=== PATIENT | male | born 2005 | race Caucasian/White ===

== ENCOUNTER 2023-04-18 20:07 | Emergency (ER) | payer OTHER ==
[~2023-04-18] VITALS: Ht 160 cm; Wt 56.8 kg
[2023-04-18 21:34] VITALS: TEMP 98.5
[2023-04-18 22:22] LABS: HEMOGLOBIN 13.9 g/dl (13.5-17.5); MEAN CORPUSCULAR HEMOGLOBIN 28.1 pg (27.0-33.0); MEAN CORPUSCULAR HGB CONC 32.3 g/dl (32.0-36.5); PLATELET COUNT, AUTOMATED 320 10^3/uL (150-450); RED BLOOD COUNT 4.94 10^6/uL (4.30-6.10); WHITE BLOOD COUNT 9.4 10^3/uL (4.0-10.0)
[2023-04-18 22:43] LABS: AMPHETAMINES LEVEL URINE NEGATIVE (NEGATIVE); BARBITURATES URINE NEGATIVE (NEGATIVE); COCAINE METABOLITE URINE NEGATIVE (NEGATIVE)
[2023-04-18 22:44] LABS: CANNABINOIDS URINE NEGATIVE (NEGATIVE); METHADONE URINE NEGATIVE (NEGATIVE); OPIATES URINE NEGATIVE (NEGATIVE); PHENCYCLIDINE URINE NEGATIVE (NEGATIVE)
[2023-04-18 22:46] LABS: BENZODIAZEPINES URINE NEGATIVE (NEGATIVE); ETHYL ALCOHOL (ETHANOL) < 0.003 % (0.000-0.010)
[2023-04-18 22:47] LABS: ACETAMINOPHEN LEVEL < 2.0 UG/ML (10.0-20.0); ALBUMIN 3.9 G/DL (3.2-5.2); ALKALINE PHOSPHATASE 108 U/L (46-116); ALT/SGPT 28 U/L (7.0-40); AST/SGOT 31 U/L (<34); BILIRUBIN,DIRECT 0.3 MG/DL (<0.4); BILIRUBIN,TOTAL 0.7 MG/DL (0.3-1.2); BLOOD UREA NITROGEN 15 MG/DL (9-23); CALCIUM LEVEL 9.2 MG/DL (8.5-10.1); CARBON DIOXIDE LEVEL 28 MMOL/L (20-31); CHLORIDE LEVEL 104 MMOL/L (98-107); GLUCOSE, FASTING 97 MG/DL (60-100); POTASSIUM SERUM 4.2 MMOL/L (3.5-5.1); SALICYLATE LEVEL < 3.0 MG/DL (<30); SODIUM LEVEL 140 MMOL/L (136-145); TOTAL PROTEIN 6.8 G/DL (5.7-8.2)
[2023-04-18 22:49] LABS: THYROID STIMULATING HORMONE 0.938 uIU/ML (0.48-4.17)
[2023-04-18 23:30] VITALS: BP 124/68; O2SAT 99
== END 2023-04-19 00:41 | disposition home or self-care (01) ==
LOC: M ED 20:07
DX: F43.22 Adjustment disorder with anxiety (principal)

== ENCOUNTER 2023-05-22 21:30 | Inpatient (IN) | payer OTHER ==
[~2023-05-22] VITALS: Ht 165.1 cm; Wt 54.5 kg
[2023-05-22] MEDS ORDERED: CHARCOAL ACTIVATED LIQUID 25GM/120ML BTL PO ONE (21:45)
[2023-05-22] MEDS ORDERED: ZOLO50TA PO (22:11)
[2023-05-22] MEDS ORDERED: HYDR50TA70 PO (22:11)
[2023-05-22 22:13] LABS: BASO # 0.1 10^3/uL (0.0-0.2); EOS % 0.4 % (0.0-3.0); LYMPH # 1.8 10^3/uL (1.5-5.0); LYMPH % 16.3 % (24.0-44.0); MEAN CORPUSCULAR HEMOGLOBIN 28.9 pg (27.0-33.0); MEAN CORPUSCULAR HGB CONC 33.3 g/dl (32.0-36.5); MEAN CORPUSCULAR VOLUME 86.7 fl (80.0-96.0); MONO # 0.8 10^3/uL (0.0-0.8); MONO % 7.2 % (2.0-8.0); NEUTROPHILS % 74.9 % (36.0-66.0); PLATELET COUNT, AUTOMATED 306 10^3/uL (150-450); RED BLOOD COUNT 5.19 10^6/uL (4.30-6.10); WHITE BLOOD COUNT 10.7 10^3/uL (4.0-10.0)
[2023-05-22 22:40] LABS: AMPHETAMINES LEVEL URINE NEGATIVE (NEGATIVE); BARBITURATES URINE NEGATIVE (NEGATIVE); BENZODIAZEPINES URINE NEGATIVE (NEGATIVE); CANNABINOIDS URINE NEGATIVE (NEGATIVE); COCAINE METABOLITE URINE NEGATIVE (NEGATIVE); METHADONE URINE NEGATIVE (NEGATIVE); OPIATES URINE NEGATIVE (NEGATIVE); PHENCYCLIDINE URINE NEGATIVE (NEGATIVE)
[2023-05-22 22:42] LABS: ETHYL ALCOHOL (ETHANOL) < 0.003 % (0.000-0.010)
[2023-05-22 22:43] LABS: CPK CREATINE PHOSPHOKINASE 1203 U/L (46-171)
[2023-05-22 22:44] LABS: ALBUMIN 4.2 G/DL (3.2-5.2); ALKALINE PHOSPHATASE 119 U/L (46-116); ALT/SGPT 25 U/L (7.0-40); AST/SGOT 43 U/L (<34); BILIRUBIN,DIRECT 0.2 MG/DL (<0.4); BILIRUBIN,TOTAL 0.5 MG/DL (0.3-1.2); BLOOD UREA NITROGEN 12 MG/DL (9-23); CALCIUM LEVEL 9.1 MG/DL (8.5-10.1); CARBON DIOXIDE LEVEL 28 MMOL/L (20-31); CHLORIDE LEVEL 105 MMOL/L (98-107); CREATININE FOR GFR 1.06 MG/DL (0.70-1.30); GLUCOSE, FASTING 91 MG/DL (60-100); POTASSIUM SERUM 4.2 MMOL/L (3.5-5.1); SALICYLATE LEVEL < 3.0 MG/DL (<30); SODIUM LEVEL 142 MMOL/L (136-145); TOTAL PROTEIN 7.4 G/DL (5.7-8.2)
[2023-05-22 22:46] LABS: THYROID STIMULATING HORMONE 1.137 uIU/ML (0.48-4.17)
[2023-05-22 22:52] LABS: OSMOLALITY SERUM 288 MOSM/KG (275-295); RSV AMPLIFICATION NEGATIVE (NEGATIVE)
[2023-05-22] MEDS ORDERED: NS 1,000 ML IV ONE (23:35)
[2023-05-23] MEDS ORDERED: MOM 30ML SUSPENSION UDC PO PRN (04:00)
[2023-05-23] MEDS ORDERED: IBUPROFEN 400MG TAB PO PRN (04:00)
[2023-05-23] MEDS ORDERED: MAALOX 30 ML SUSP *UDC PO PRN (04:00)
[2023-05-23] MEDS ORDERED: ACETAMINOPHEN TAB 650MG DOSE (2X325MG) PO PRN (04:00)
[2023-05-23] MEDS ORDERED: MED REC IN PROGRESS XX SCH (05:10)
[2023-05-23 05:33] VITALS: BP 120/69; TEMP 98.4; O2SAT 100
[2023-05-23] MEDS ORDERED: HYDR-3363 PO (09:38)
[2023-05-23] MEDS ORDERED: HOME MED LIST COMPLETE! XX SCH (09:40)
[2023-05-23] MEDS: NICOTINE 14 MG/24 HR TRANSDERMAL TD SCH (11:25)
[2023-05-23] MEDS: diphenhydrAMINE 25MG CAP PO PRN (11:27)
[2023-05-23 16:20] VITALS: BP 136/68; TEMP 98.4; O2SAT 100
[2023-05-23] MEDS: traZODone 50 MG TAB PO PRN (22:30)
[2023-05-24 06:08] VITALS: BP 103/44; TEMP 97.9; O2SAT 99
[2023-05-24] MEDS: NICOTINE 14 MG/24 HR TRANSDERMAL TD SCH (09:47)
[2023-05-24] MEDS: VENLAFAXINE **XR** 37.5 MG CAPSULE PO SCH (13:03)
[2023-05-24 18:27] VITALS: BP 145/68; TEMP 98.3
[2023-05-24] MEDS: diphenhydrAMINE 25MG CAP PO PRN (19:29)
[2023-05-24] MEDS: traZODone 50 MG TAB PO PRN (21:49)
[2023-05-25 06:07] VITALS: BP 113/51; TEMP 98; O2SAT 98
[2023-05-25] MEDS: VENLAFAXINE **XR** 37.5 MG CAPSULE PO SCH (09:41)
[2023-05-25] MEDS: NICOTINE 14 MG/24 HR TRANSDERMAL TD SCH (09:41)
[2023-05-25 16:35] VITALS: BP 129/68; TEMP 97.7; O2SAT 100
[2023-05-25] MEDS: traZODone 50 MG TAB PO PRN (20:49)
[2023-05-26 06:51] VITALS: BP 104/51; TEMP 98.3; O2SAT 95
[2023-05-26] MEDS ORDERED: SERTRALINE HCL 25 MG TABLET PO SCH (09:00)
[2023-05-26] MEDS: NICOTINE 14 MG/24 HR TRANSDERMAL TD SCH (09:33)
[2023-05-26] MEDS: VENLAFAXINE **XR** 37.5 MG CAPSULE PO SCH (09:33)
[2023-05-26] MEDS ORDERED: traZODone 50 MG TAB PO PRN (10:10)
[2023-05-26] MEDS ORDERED: PILL CUTTER 1 EACH XX PRN (10:15)
[2023-05-26] MEDS: busPIRone 10 MG TAB PO SCH ×2 (11:18→21:28)
[2023-05-26 16:16] VITALS: BP 115/56; TEMP 98; O2SAT 97
[2023-05-27 06:59] VITALS: BP 97/46; TEMP 97.5; O2SAT 100
[2023-05-27] MEDS: NICOTINE 14 MG/24 HR TRANSDERMAL TD SCH (07:54)
[2023-05-27] MEDS: VENLAFAXINE **XR** 37.5 MG CAPSULE PO SCH (07:54)
[2023-05-27] MEDS: busPIRone 10 MG TAB PO SCH ×2 (07:54→22:11)
[2023-05-27] MEDS ORDERED: traZODone 50 MG TAB PO PRN (12:34)
[2023-05-27] MEDS: diphenhydrAMINE 25MG CAP PO PRN (15:25)
[2023-05-27 16:01] VITALS: BP 113/56; TEMP 98.2; O2SAT 100
[2023-05-27] MEDS: hydrOXYzine 50 MG TAB PO PRN (18:32)
[2023-05-27] MEDS: traZODone 25MG PER 1/2 TABLET PO PRN (22:11)
[2023-05-28 06:32] VITALS: BP 109/65; TEMP 97; O2SAT 100
[2023-05-28] MEDS: VENLAFAXINE **XR** 75MG CAPSULE PO SCH (09:24)
[2023-05-28] MEDS: busPIRone 10 MG TAB PO SCH (09:24)
[2023-05-28] MEDS: NICOTINE 14 MG/24 HR TRANSDERMAL TD SCH (09:25)
[2023-05-28 16:11] VITALS: BP 121/76; TEMP 98.2; O2SAT 99
[2023-05-28] MEDS: hydrOXYzine 50 MG TAB PO PRN (17:33)
[2023-05-28] MEDS: busPIRone 5 MG TAB PO SCH (21:08)
[2023-05-29] MEDS: diphenhydrAMINE 25MG CAP PO PRN ×2 (03:34→10:19)
[2023-05-29 06:11] VITALS: BP 99/54; TEMP 98.2; O2SAT 99
[2023-05-29] MEDS: NICOTINE 14 MG/24 HR TRANSDERMAL TD SCH (08:18)
[2023-05-29] MEDS: VENLAFAXINE **XR** 75MG CAPSULE PO SCH (08:18)
[2023-05-29] MEDS: busPIRone 5 MG TAB PO SCH ×2 (08:18→20:22)
[2023-05-29 17:57] VITALS: BP 140/67; TEMP 98; O2SAT 100
[2023-05-29] MEDS: PRAZOSIN 1 MG CAP PO SCH (20:22)
[2023-05-29] MEDS: traZODone 25MG PER 1/2 TABLET PO PRN (20:22)
[2023-05-30 06:13] VITALS: BP 131/53; TEMP 97.4; O2SAT 99
[2023-05-30] MEDS: VENLAFAXINE **XR** 75MG CAPSULE PO SCH (08:16)
[2023-05-30] MEDS: NICOTINE 14 MG/24 HR TRANSDERMAL TD SCH (08:17)
[2023-05-30] MEDS: busPIRone 5 MG TAB PO SCH ×2 (08:17→20:14)
[2023-05-30] MEDS: diphenhydrAMINE 25MG CAP PO PRN (09:50)
[2023-05-30 15:27] VITALS: BP 116/57; TEMP 98.7; O2SAT 99
[2023-05-30 20:15] VITALS: BP 116/57
[2023-05-30] MEDS: PRAZOSIN 1 MG CAP PO SCH (20:15)
[2023-05-31] MEDS: hydrOXYzine 50 MG TAB PO PRN (01:12)
[2023-05-31] MEDS: busPIRone 5 MG TAB PO SCH (08:08)
[2023-05-31] MEDS: VENLAFAXINE **XR** 75MG CAPSULE PO SCH (08:08)
[2023-05-31] MEDS: NICOTINE 14 MG/24 HR TRANSDERMAL TD SCH (08:08)
[2023-05-31] MEDS ORDERED: VENL75CA47 PO (11:20)
[2023-05-31] MEDS ORDERED: MINI1CAP PO (11:20)
[2023-05-31] MEDS ORDERED: HYDR50TA70 PO (11:20)
[2023-05-31] MEDS ORDERED: BUSP5TA PO (11:20)
[2023-05-31] MEDS ORDERED: TRAZ-252 PO (11:20)
[2023-05-31] MEDS ORDERED: NICO14PA TD (11:20)
== END 2023-05-31 12:45 | disposition home or self-care (01) | DRG 885 ==
LOC: M ED 21:30 → M ED INP 05-23 03:59 → M PSY 05-23 05:16
PROVIDERS: ADMIT Student in an Organized Health Care Education/Training Program; ATTEND Student in an Organized Health Care Education/Training Program
DX: F33.2 Major depressive disorder, recurrent severe without psychotic features (principal); F43.10 Post-traumatic stress disorder, unspecified; F43.21 Adjustment disorder with depressed mood; F60.3 Borderline personality disorder; F17.210 Nicotine dependence, cigarettes, uncomplicated; I45.6 Pre-excitation syndrome; F41.0 Panic disorder [episodic paroxysmal anxiety]; Z91.51 Personal history of suicidal behavior; F41.1 Generalized anxiety disorder; Z79.899 Other long term (current) drug therapy; Z20.822 Contact with and (suspected) exposure to COVID-19

== ENCOUNTER 2023-08-22 20:49 | Emergency (ER) | payer OTHER ==
[2023-08-22 20:49] VITALS: O2SAT 97
[~2023-08-22 20:49] MED LIST: BUSP5TA PO; HYDR-3363 PO; HYDR50TA70 PO; MINI1CAP PO; NICO14PA TD; TRAZ-252 PO; VENL75CA47 PO; ZOLO50TA PO
[2023-08-22] MEDS ORDERED: ANUS2.5C2 TOP (22:30)
[2023-08-22 22:41] VITALS: BP 106/59; TEMP 98.4
== END 2023-08-22 22:42 | disposition home or self-care (01) ==
LOC: M ED 20:49
DX: K64.9 Unspecified hemorrhoids (principal); Z79.899 Other long term (current) drug therapy